=== PATIENT | male | born 1970 | race Caucasian/White ===

== ENCOUNTER 2020-09-09 07:52 | Outpatient (CLI) | payer OTHER, SELFPAY ==
[2020-09-09 08:53] LABS: Alanine Aminotransferase 25 U/L (4-50); Albumin Level 3.9 g/dL (3.5-5.1); Alkaline Phosphatase 94 U/L (38-126); Anion Gap 7 mmol/L (8-16); Aspartate Amino Transferase 23 U/L (17-59); Bilirubin,Total 0.4 mg/dL (0.2-1.3); Blood Urea Nitrogen 22 mg/dL (9-20); Calcium 9.4 mg/dL (8.4-10.2); Carbon Dioxide 28 mmol/L (22-30); Chloride 103 mmol/L (98-107); Cholesterol 150 mg/dL (0-200); Estimated Glomerular Filt Rate > 60; Glucose 184 mg/dL (75-110); HDL Direct 39 mg/dL; Potassium 3.8 mmol/L (3.4-5.0); Sodium 138 mmol/L (137-145); Triglycerides 192 mg/dL (<150)
[2020-09-09 09:03] LABS: LDL Cholesterol Direct 92 mg/dL
[2020-09-09 09:11] LABS: Hemoglobin A1C 8.4 % (<5.7)
== END 2020-09-09 07:53 | disposition home or self-care (01) ==
PROVIDERS: PCP Family Medicine; Visit Provider Family Medicine
DX: E11.65 Type 2 diabetes mellitus with hyperglycemia (principal); E78.5 Hyperlipidemia, unspecified
CPT/HCPCS: 36415; 80053; 80061; 83036

== ENCOUNTER 2021-03-09 07:05 | Outpatient (CLI) | payer OTHER, SELFPAY ==
[2021-03-09 07:41] LABS: Alanine Aminotransferase 17 U/L (4-50); Alkaline Phosphatase 57 U/L (38-126); Anion Gap 5 mmol/L (8-16); Aspartate Amino Transferase 20 U/L (17-59); Bilirubin,Total 0.4 mg/dL (0.2-1.3); Blood Urea Nitrogen 17 mg/dL (9-20); Calcium 8.9 mg/dL (8.4-10.2); Carbon Dioxide 32 mmol/L (22-30); Chloride 103 mmol/L (98-107); Cholesterol 170 mg/dL (0-200); Estimated Glomerular Filt Rate > 60; Glucose 123 mg/dL (75-110); HDL Direct 40 mg/dL; Potassium 3.7 mmol/L (3.4-5.0); Sodium 140 mmol/L (137-145); Triglycerides 222 mg/dL (<150)
[2021-03-09 07:45] LABS: Hemoglobin A1C 8.6 % (<5.7)
[2021-03-09 07:49] LABS: Creatinine Urine 87.4 mg/dL
[2021-03-09 07:52] LABS: LDL Cholesterol Direct 94 mg/dL
[2021-03-09 07:55] LABS: MALB Creatinine Ratio 24.7 mg/g (0-30); Microalbumin Urine Random 21.6 mg/L (0-16.7)
== END 2021-03-09 07:06 | disposition home or self-care (01) ==
PROVIDERS: PCP Family Medicine; Visit Provider Family Medicine
DX: E11.65 Type 2 diabetes mellitus with hyperglycemia (principal); E78.5 Hyperlipidemia, unspecified; I10 Essential (primary) hypertension
CPT/HCPCS: 36415; 80053; 80061; 82043; 83036

== ENCOUNTER 2024-07-29 16:44 | Emergency (ER) | payer BC, SELFPAY ==
[2024-07-29 17:33] VITALS: BP 142/79; PULSE 64; RESP 18; TEMP 36.6; O2SAT 96
--- NOTE | 2024-07-29 17:38 | ED.SKABFB ---
HPI - Skin/Abscess/Foreign Bdy General Stated complaint: skin irritation Time Seen by Provider: 07/29/24 17:40 Source: patient Mode of arrival: ambulatory Limitations: no limitations History of Present Illness HPI narrative: Franklyn is a 54-year-old male patient presenting to the clinic today with complaints of skin irritation to his face. He reports he was painting today and wiping his sweat with rags that he thinks may have had paint thinner on them. He reports he noticed a burning sensation to his forehead and around his cheeks. He denies any burning in his eyes or any eye watering. He denies any visual changes. States that he has washed the area with mild soap and water, rinsed with cold water, and tried applying petroleum jelly to the area. He contacted his primary care doctor who told him to rinse with the cold water. He is in here for further evaluation. He denies any other concerns. Related Data Allergies Allergy/AdvReac Type Severity Reaction Status Date / Time No Known Allergies Allergy Mild Unverified 04/20/24 17:00 Review of Systems Review of Systems: Pertinent positives per HPI. Patient denies any fever, chills, headache, visual changes, dizziness, cough, runny nose, sore throat, shortness of breath, chest pain, palpitations, nausea, vomiting, diarrhea, constipation, abdominal pain, or any urinary issues. 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 Social History Social History Smoking status: Never smoker Alcohol intake: never Substance use: never Do You Feel Safe in your Home?: Yes Lack of Transportation: No Lack of Food: Never True Current Housing: I Have Housing Concerned About Future Housing: No Difficulty Paying Gas/Electric Bills: No Difficulty Paying for Meds: No Currently Unemployed: No Education: Trade/Vocational Certificate Difficulty w/ Childcare or Family Care: No Living arrangements: with family Occupation/Education: occupation Gender identity (if verbalized by the patient): Male Sexual Orientation (if Verbalized by the Patient): Straight or Heterosexual Comments At the time of my signature, I reviewed and agree with the nursing past medical, surgical, social, and family history. There is no relevant family history pertinent to the patient complaint. Exam Narrative: General: Well-developed, well nourished, in no apparent distress Head: Normocephalic, atraumatic. Cardio: Regular rate and rhythm, s1 and s2 normal, no murmur appreciated. Resp: Clear to auscultation bilaterally, no rhonchi, rales, wheezing or rubs. Integumentary: [place], warm, and dry, mild redness without swelling to the forehead and around the cheeks/orbits. No eye watering. No blistering Course Course Emergency Course: Portions of this record may have been created with voice recognition software. Level of Care: Express Care Visit Vital Signs Vital signs: Vital Signs Temperature 36.6 C 07/29/24 17:33 Pulse Rate 64 07/29/24 17:33 Respiratory Rate 18 07/29/24 17:33 Blood Pressure 142/79 H 07/29/24 17:33 Pulse Oximetry 96 07/29/24 17:33 Oxygen Delivery Room Air 07/29/24 17:33 Temperature 36.6 C 07/29/24 17:33 Pulse Rate 64 07/29/24 17:33 Respiratory Rate 18 07/29/24 17:33 Blood Pressure 142/79 H 07/29/24 17:33 Pulse Oximetry 96 07/29/24 17:33 Oxygen Delivery Room Air 07/29/24 17:33 Vital signs reviewed MDM - Skin/Abscess/Foreign Bdy MDM Narrative Medical decision making narrative: At the time of visit patient is resting comfortably on the exam table. Patient appears to be nontoxic. Plan: I suspect patient has a very mild ayush
== END 2024-07-29 17:49 | disposition home or self-care (01) ==
PROVIDERS: Emergency Provider Nurse Practitioner Family; PCP Family Medicine
DX: T52.8X1A Toxic effect of other organic solvents, accidental (unintentional), initial encounter (principal); T20.56XA Corrosion of first degree of forehead and cheek, initial encounter; I10 Essential (primary) hypertension; E78.5 Hyperlipidemia, unspecified; E11.3293 Type 2 diabetes mellitus with mild nonproliferative diabetic retinopathy without macular edema, bilateral; Z79.4 Long term (current) use of insulin; Z79.84 Long term (current) use of oral hypoglycemic drugs
CPT/HCPCS: 99212; G0463